=== PATIENT | female | born 1960 | race African-American/Black ===

== ENCOUNTER 2023-05-10 09:29 | Outpatient (CLI) | payer OTHER | END 2023-05-10 09:30 | disposition home or self-care (01) | LOC: BICCT 09:29 | PROVIDERS: ATTEND Psychiatry & Neurology Neurology | DX: G31.84 Mild cognitive impairment of uncertain or unknown etiology (principal); G93.89 Other specified disorders of brain; E23.6 Other disorders of pituitary gland | CPT/HCPCS: 70450 ==